=== PATIENT | male | born 1945 | race Two or more races ===

== ENCOUNTER 2019-01-07 19:16 | Emergency (ER) | payer MEDICAID ==
--- NOTE | 2019-01-07 19:51 | ED Physician Chart ---
ED Chief Complaint/HPI - Patient Information Date Seen:: 01/07/19 Time Seen:: 19:46 Chief Complaint:: rt eye infection History of Present Illness:: 73 yr old male with lt eye reddness and lots of mucus yellowsh discharge since yest Allergies:: Allergies Allergy/AdvReac Type Severity Reaction Status Date / Time aspirin Allergy Verified 01/07/19 19:19 Vitals:: Vital Signs - 8 hr 01/07/19 19:21 Temp 98.3 F HR 61 RR 17 BP 109/53 O2 Sat % 98 ED Review of Systems - Review of Systems General/Constitutional: No fever, No chills, No weight loss, No weakness, No diaphoresis, No edema, No loss of appetite Skin: No skin lesions, No rash, No bruising Head: No headache, No light-headedness Eyes: Pain, Other (yellowish eye discharge) ENT: No earache, No nasal drainage, No sore throat, No tinnitus Neck: No neck pain, No swelling, No thyromegaly, No stiffness, No mass noted Cardio Vascular: No chest pain, No palpitations, No PND, No orthopnea, No edema Pulmonary: No SOB, No cough, No sputum, No wheezing GI: No nausea, No vomiting, No diarrhea, No pain, No melena, No hematochezia, No constipation, No hematemesis G/U: No dysuria, No frequency, No hematuria Musculoskeletal: No bone or joint pain, No back pain, No muscle pain Endocrine: No polyuria, No polydipsia Psychiatric: No prior psych history, No depression, No anxiety, No suicidal ideation Hematopoietic: No bruising, No lymphadenopathy Allergic/Immuno: No urticaria, No angioedema Neurological: No syncope, No focal symptoms, No weakness, No paresthesia, No headache, No seizure, No dizziness, No confusion, No vertigo ED Past Medical History - Past Medical History Past Medical History: HTN ED Physical Exam - Physical Examination General/Constitutional: Awake, Well-developed, well-nourished, Alert, No distress, GCS 15, Non-toxic appearing, Ambulatory Head: Atraumatic Eyes: Lids, conjuctiva normal, PERRL, EOMI Other Eyes comments:: discharge lt eyegoopy eye discharge Skin: Nl inspection, No rash, No skin lesions, No ecchymosis, Well hydrated, No lymphadenopathy ENMT: External ears, nose nl, Nasal exam nl, Lips, teeth, gums nl Neck: Nontender, Full ROM w/o pain, No JVD, No nuchal rigidity, No bruit, No mass, No stridor Respiratory: Nl effort/Exclusion, Clear to Auscultation, No Wheeze/Rhonchi/Rales Cardio Vascular: RRR, No murmur, gallop, rubs, NL S1 S2 GI: No tenderness/rebounding/guarding, No organomegaly, No hernia, Normal BS's, Nondistended, No mass/bruits, No McBurney tenderness : No CVA tenderness Extremities: No tenderness or effusion, Full ROM, normal strength in all extremities, No edema, Normal digits & nails Neuro/Psych: Alert/oriented, DTR's symmetric, Normal sensory exam, Normal motor strength, Judgement/insight normal, Mood normal, Normal gait, No focal deficits Misc: Normal back, No paraspinal tenderness ED Assessment - Assessment General Assessment: lt acute bacterial conjunctivitis ED Septic Shock - . Is Septic Shock (SBP<90, OR Lactate>4 mmol\L) present?: No - <6hrs of presentation: Vital Signs: Vital Signs - 8 hr 01/07/19 19:21 Temp 98.3 F HR 61 RR 17 BP 109/53 O2 Sat % 98 ED Reassessment (Disposition) - Reassessment Reassessment:: bacterial conjunctivitis lt eye - Diagnosis Diagnosis:: as above - Aftercare/Follow up Instructions Medication Prescribed:: amox emycin eye ointment - Patient Disposition Discharge/Transfer:: Home Condition at Disposition:: Stable
== END 2019-01-07 20:48 | disposition home or self-care (01) ==
LOC: ER 19:16
DX: H10.9 Unspecified conjunctivitis (principal); I10 Essential (primary) hypertension; Z88.6 Allergy status to analgesic agent
CPT/HCPCS: 99283; 96372; J0696 ×2; Z7502